=== PATIENT | female | born 1930 | race Caucasian/White ===

== ENCOUNTER 2016-04-26 09:09 | Outpatient (CLI) | payer MEDICARE, OTHER ==
[2016-04-26 20:01] LABS: TOTAL PROTEIN 6.8 g/dL (6.0-8.5)
== END 2016-04-26 09:15 ==
LOC: LAB 09:09
PROVIDERS: ATTEND Internal Medicine Clinical Cardiac Electrophysiology
DX: E78.5 Hyperlipidemia, unspecified (principal)
CPT/HCPCS: 36415; 80053; 80061; 85610

== ENCOUNTER 2016-05-22 12:58 | Outpatient (CLI) | payer MEDICARE, OTHER | END 2016-05-22 12:59 | LOC: LAB 12:58 | PROVIDERS: ATTEND Internal Medicine Clinical Cardiac Electrophysiology | DX: I48.0 Paroxysmal atrial fibrillation (principal); Z79.01 Long term (current) use of anticoagulants | CPT/HCPCS: 36415; 85610 ==

== ENCOUNTER 2016-06-26 09:51 | Outpatient (CLI) | payer MEDICARE, OTHER | END 2016-06-26 09:52 | LOC: LAB 09:51 | PROVIDERS: ATTEND Internal Medicine Clinical Cardiac Electrophysiology | DX: Z51.81 Encounter for therapeutic drug level monitoring (principal); Z79.01 Long term (current) use of anticoagulants; I48.0 Paroxysmal atrial fibrillation | CPT/HCPCS: 36415; 85610 ==

== ENCOUNTER 2016-08-01 09:19 | Outpatient (CLI) | payer MEDICARE, OTHER | END 2016-08-01 09:20 | LOC: LAB 09:19 | PROVIDERS: ATTEND Internal Medicine Clinical Cardiac Electrophysiology | DX: Z51.81 Encounter for therapeutic drug level monitoring (principal); Z79.01 Long term (current) use of anticoagulants; I48.0 Paroxysmal atrial fibrillation | CPT/HCPCS: 36415; 85610 ==

== ENCOUNTER 2016-09-05 09:20 | Outpatient (CLI) | payer MEDICARE | END 2016-09-05 09:21 | LOC: LAB 09:20 | PROVIDERS: ATTEND Internal Medicine Clinical Cardiac Electrophysiology | DX: I48.91 Unspecified atrial fibrillation (principal); Z79.01 Long term (current) use of anticoagulants | CPT/HCPCS: 36415; 85610 ==

== ENCOUNTER 2016-10-10 09:09 | Outpatient (CLI) | payer MEDICARE | END 2016-10-10 09:10 | LOC: LAB 09:09 | PROVIDERS: ATTEND Internal Medicine Clinical Cardiac Electrophysiology | DX: I48.0 Paroxysmal atrial fibrillation (principal) | CPT/HCPCS: 85610 ==

== ENCOUNTER 2016-11-13 10:00 | Outpatient (CLI) | payer MEDICARE | END 2016-11-13 11:00 | LOC: LAB 10:00 | PROVIDERS: ATTEND Internal Medicine Clinical Cardiac Electrophysiology | DX: I48.0 Paroxysmal atrial fibrillation (principal) | CPT/HCPCS: 36415; 85610 ==

== ENCOUNTER 2016-11-28 10:34 | Outpatient (CLI) | payer MEDICARE | END 2016-11-28 10:35 | LOC: LAB 10:34 | PROVIDERS: ATTEND Internal Medicine Clinical Cardiac Electrophysiology | DX: I48.0 Paroxysmal atrial fibrillation (principal) | CPT/HCPCS: 36415; 85610 ==

== ENCOUNTER 2016-12-12 10:43 | Outpatient (CLI) | payer MEDICARE | END 2016-12-12 10:44 | LOC: LAB 10:43 | PROVIDERS: ATTEND Internal Medicine Clinical Cardiac Electrophysiology | DX: I48.0 Paroxysmal atrial fibrillation (principal) | CPT/HCPCS: 36415; 85610 ==

== ENCOUNTER 2016-12-19 09:17 | Outpatient (CLI) | payer MEDICARE | END 2016-12-19 09:19 | LOC: LAB 09:17 | PROVIDERS: ATTEND Internal Medicine Clinical Cardiac Electrophysiology | DX: I48.0 Paroxysmal atrial fibrillation (principal) | CPT/HCPCS: 36415; 85610 ==